=== PATIENT | female | born 1990 | race African-American/Black ===

== ENCOUNTER 2017-03-04 08:23 | Emergency (ER) | payer BC ==
[~2017-03-04] VITALS: Ht 170.2 cm; Wt 128.8 kg
[~2017-03-04 08:23] MED LIST: BACTRIM DS TAB1 EACH PO; LO-OVRAL PO; TYLENOL #4 PO
[2017-03-04] MEDS ORDERED: ALBUTEROL SULF 0.083% NEB SOLN 3 ML NEB NEB STA (08:46)
[2017-03-04] MEDS ORDERED: IPRATROPIUM BROMIDE 0.02% 2.5 ML NEB NEB STA (08:46)
[2017-03-04 09:29] LABS: BASOPHILS % 0.4 % (0.0-1.0); EOSINOPHILS # (AUTO) 0.1 (0.0-0.4); EOSINOPHILS % 1.4 % (0.0-6.0); HEMATOCRIT 41.9 % (34.2-44.1); HEMOGLOBIN 14.1 g/dL (12.0-16.0); LYMPHOCYTES # (AUTO) 2.5 (1.0-3.2); LYMPHOCYTES % 45.2 % (18.0-39.1); MEAN CORPUSCULAR HEMOGLOBIN 29.3 pg (28-32); MEAN CORPUSCULAR HGB CONC 33.7 g/dL (31-35); MEAN CORPUSCULAR VOLUME 87.1 fL (81-99); MONOCYTES # (AUTO) 0.4 (0.2-0.8); MONOCYTES % 7.1 % (4.4-11.3); NEUTROPHILS # (AUTO) 2.6 (2.1-6.9); NEUTROPHILS % 45.7 % (38.7-80.0); PLATELET COUNT 298 x10e3/uL (140-360); RED BLOOD COUNT 4.81 x10e6/uL (3.6-5.1); RED CELL DISTRIBUTION WIDTH 12.1 % (11.7-14.4)
[2017-03-04 09:46] LABS: ANION GAP 11.7 mmol/L (8-16); BLOOD UREA NITROGEN 11 mg/dL (7-26); BUN/CREATININE RATIO 14 (6-25); CALCIUM 9.3 mg/dL (8.4-10.2); CARBON DIOXIDE 24 mmol/L (22-29); CHLORIDE 107 mmol/L (98-107); CREATININE, SERUM 0.76 mg/dL (0.57-1.11); EST GLOMERULAR FILTRATION RATE > 60 ML/MIN (60-); GLUCOSE 96 mg/dL (74-118); POTASSIUM 3.7 mmol/L (3.5-5.1); SODIUM 139 mmol/L (136-145)
[2017-03-04 10:06] LABS: BAND NEUTROPHILS % (MANUAL) 1 %; EOSINOPHILS % (MANUAL) 4 % (0-7); LYMPHOCYTES % (MANUAL) 46 % (19-48); MONOCYTES % (MANUAL) 2 % (3.4-9.0); NEUTROPHILS % (MANUAL) 43 % (40-74); PLATELET ESTIMATE ADEQUATE; RBC MORPHOLOGY COMMENT NORMAL
[2017-03-04 10:07] LABS: PLATELET MORPHOLOGY COMMENT NORMAL
[2017-03-04] MEDS ORDERED: PROAIR HFA INH8.5 GM INH (10:18)
[2017-03-04] MEDS ORDERED: AZITHROMYCIN250 MG PO (10:18)
[2017-03-04] MEDS ORDERED: DEXAMETHASONE SOD PHOS 10 MG/1 ML VIAL INJ ONE (10:30)
--- NOTE | 2017-03-04 10:42 | Diagnostic Imaging Report ---
EXAMINATION: Chest, CHEST 2 VIEWS INDICATION: Chest pain COMPARISON: Portable chest 04/03/2016 FINDINGS: LINES: None. Heart: Normal cardiac silhouette. Vascular: The pulmonary vasculature is within normal limits. Mediastinum: No mediastinal, hilar, or axillary mass or lymphadenopathy. Lungs: No parenchymal mass. No focal consolidation. Pleura: No pleural effusion. No pneumothorax. Bones: No acute osseous abnormality. Soft tissues: Bilateral nipple rings. Impression: No acute radiographic abnormality. Signed by: Dr. Neil Durand M.D. on 03/04/2017 10:38 AM
== END 2017-03-04 11:09 | disposition home or self-care (01) ==
LOC: ER 08:23
DX: R50.9 Fever, unspecified (principal); R05 Cough; J20.9 Acute bronchitis, unspecified
CPT/HCPCS: 36415; 71020; 80048; 85025; 87400; 99284; J1100; 71046

== ENCOUNTER 2018-03-22 23:44 | Emergency (ER) | payer BC ==
[~2018-03-22] VITALS: Ht 170.2 cm; Wt 132.4 kg
[~2018-03-22 23:44] MED LIST changes: +AZITHROMYCIN250 MG PO; +PROAIR HFA INH8.5 GM INH
--- OUTSIDE RECORDS SUMMARY | 2018-03-22 23:48 | XMS REPORT ---
Author [facility] Address Unknown Phone Unavailable Care Team Providers [facility] Specialist Name Role Phone Ata LAYNE Unavailable Unavailable Giovanni ADKINS Unavailable Unavailable Problems This patient has no known problems. Allergies, Adverse Reactions, Alerts This patient has no known allergies or adverse reactions. Medications This patient has no known medications. Results Test Description Test Time Test Comments Text Results Atomic Results Result Comments CHEST 2 VIEWS [place] [address] Patient Name: SOCORRO LINDO MR #: [id number] : 1990 Age/Sex: 26/F Req #: [id number] [facility] Physician: Ordered by: PANDA LAYNE MD Report #: [id number] Location: ER Room/Bed: Procedure: [id number] DX/CHEST 2 VIEWS Exam Date: 03/04/17 Exam Time: 1020 REPORT STATUS: Signed EXAMINATION: Chest, CHEST 2 VIEWS INDICATION: Chest pain COMPARISON: Portable chest 04/03/2016 FINDINGS: LINES: None. Heart: Normal cardiac silhouette. Vascular: The pulmonary vasculature is within normal limits. Mediastinum: No mediastinal, hilar, or axillary mass or lymphadenopathy. Lungs: No parenchymal mass. No focal consolidation. Pleura: No pleural effusion. No pneumothorax. Bones: No acute osseous abnormality. Soft tissues: Bilateral nipple rings. Impression: No acute radiographic abnormality. Signed by: Dr. Kerri Mathew M.D. on 03/04/2017 10:38 AM Dictated By: KERRI MATHEW MD 1038 Transcribed By: MONCHO on 03/04/17 1038 COPY TO: PANDA LAYNE MD US BREAST LIMITED LEFT [place] [address] Patient Name: SOCORRO LINDO MR #: [id number] : 1990 Age/Sex: 26/F Req #: [id number] Adm Physician: Ordered by: BAILEY ADKINS MD Report #: [id number] Location: ER Room/Bed: Procedure: [id number] US/US BREAST LIMITED LEFT Exam Date: Exam Time: REPORT STATUS: Signed EXAMINATION: Limited left breast ultrasound. CLINICAL INDICATION: Evaluate for abscess COMPARISON: None DISCUSSION: Limited transverse and longitudinal Hidalgo scale and color sonographic images of the left breast were obtained between 12 and 6:00. The breast tissue appears heterogeneous with associated diffuse edema without drainable fluid collections or discrete masses. No abnormal increased vascularity. IMPRESSION: Heterogeneous appearance of the left breast tissue, which appears to be associated with edema without drainable fluid collections or discrete masses. Recommend follow-up with a dedicated left breast ultrasound and mammography in 2 weeks. Signed by: Dr. Nakita Perales M.D. on 10/15/2016 9:56 AM Dictated By: NAKITA PERALES MD Transcribed By: MONCHO on 10/15/16 0956 COPY TO: BAILEY ADKINS MD
== END 2018-03-23 00:30 | disposition home or self-care (01) ==
LOC: FSED 23:55
DX: J02.9 Acute pharyngitis, unspecified (principal)
CPT/HCPCS: 83518; 87400; 99282